=== PATIENT | male | born 1955 | race Caucasian/White ===

== ENCOUNTER 2018-11-01 17:03 | Inpatient (IN) ==
[2018-11-01 17:53] LABS: Basophils % 0.4 % (0.0-0.8); Eosinophils # 0.1 10*3/uL (0.0-0.87); Eosinophils % 1.1 % (0.00-10.9); Hematocrit 42.4 VOL% (42.0-52.0); Hemoglobin 13.2 GM/DL (14.0-18.0); Immature Granulocytes % 0.4 %; Immature Granulocytes Absolute 0.05 #; Lymphocytes # 1.4 10*3/uL (1.4-4.0); Lymphocytes % 12.2 % (21.2-54.2); Mean Corpuscular HGB Conc 31.1 GM/DL (32-36); Mean Corpuscular Volume 97.9 FL (87-102); Mean Platelet Volume 9.3 FL (9.6-12.0); Monocytes % 5.5 % (1.7-12.7); Neutrophils % 80.4 % (38.7-73.9); Platelet Count 243 T/CUMM (130-400); Red Blood Count 4.33 MC/CUMM (3.8-5.5); Red Cell Distribution Width 12.3 % (9.3-17.3); White Blood Count 11.3 T/CUMM (4-12)
[2018-11-01 18:03] LABS: INR 0.8; PT Patient Result 9.1 SECS; Partial Thromboplastin Time 26.9 SECS (0-40)
[2018-11-01 18:25] LABS: Albumin 3.7 G/DL (3.4-5.0); Bilirubin,Total 0.4 MG/DL (0.2-1.0); Calcium 9.7 MG/DL (8.5-10.1); Osmolality,Calculated 275.8 MOS/KG (273-304); Total Protein 7.8 G/DL (6.4-8.3)
[2018-11-01] MEDS ORDERED: cefTRIAXone 1,000 MG in SODIUM CHLORIDE 0.9% 100 ML IV STA (18:37)
[2018-11-01] MEDS ORDERED: methylPREDNISolone SOD SUC 125 MG/2 ML VIAL IV STA (18:37)
[2018-11-01] MEDS ORDERED: cefTRIAXone 1,000 MG in SYRINGE 1 EACH IV STA (18:44)
[2018-11-01] MEDS ORDERED: ALBUTEROL 2.5 MG/3 ML NEB RESP TX SCH (19:00)
[2018-11-01] MEDS ORDERED: ONDANSETRON 4 MG/2 ML VIAL IV PRN (20:18)
[2018-11-02] MEDS: oxyCODONE/ACETAMINOPHEN 5-325 MG TABLET PO SCH ×4 (00:14→09:15)
[2018-11-02] MEDS: BUDESONIDE/FORMOTEROL 160-4.5 INHALER 6 GM INH SCH ×2 (00:25→08:10)
[2018-11-02] MEDS: GABAPENTIN 300 MG CAPSULE PO SCH ×5 (00:29→20:54)
[2018-11-02] MEDS: SODIUM CHLOR 0.45% KCL 20 MEQ 20 MEQ/1,000 ML BAG IV SCH ×3 (00:29→21:10)
[2018-11-02] MEDS: MIRTAZAPINE 15 MG TABLET PO SCH ×2 (00:29→20:54)
[2018-11-02] MEDS: ALBUTEROL/IPRATROPIUM 3 ML NEB RESP TX SCH ×4 (00:36→19:31)
[2018-11-02] MEDS: AZITHROMYCIN INJ 500 MG in SODIUM CHLORIDE 0.9% 250 ML IV SCH ×2 (03:25→21:10)
[2018-11-02] MEDS: methylPREDNISolone SOD SUC 40 MG/1 ML VIAL IV SCH ×3 (03:26→17:43)
[2018-11-02 04:49] LABS: Basophils % 0.1 % (0.0-0.8); Hematocrit 40.1 VOL% (42.0-52.0); Hemoglobin 12.9 GM/DL (14.0-18.0); Immature Granulocytes % 0.3 %; Immature Granulocytes Absolute 0.03 #; Lymphocytes # 0.7 10*3/uL (1.4-4.0); Lymphocytes % 7.9 % (21.2-54.2); Mean Corpuscular HGB Conc 32.2 GM/DL (32-36); Mean Corpuscular Volume 96.6 FL (87-102); Mean Platelet Volume 9.7 FL (9.6-12.0); Monocytes % 1.3 % (1.7-12.7); Neutrophils % 90.4 % (38.7-73.9); Platelet Count 246 T/CUMM (130-400); Red Blood Count 4.15 MC/CUMM (3.8-5.5); Red Cell Distribution Width 12.3 % (9.3-17.3); White Blood Count 8.6 T/CUMM (4-12)
[2018-11-02 05:10] LABS: Calcium 10.1 MG/DL (8.5-10.1); Osmolality,Calculated 279.7 MOS/KG (273-304)
[2018-11-02] MEDS: ROFLUMILAST 500 MCG TABLET PO SCH (08:08)
[2018-11-02] MEDS: PANTOPRAZOLE 40 MG VIAL IV SCH (08:08)
[2018-11-02] MEDS: oxyCODONE/ACETAMINOPHEN 5-325 MG TABLET PO PRN ×2 (12:11→17:43)
[2018-11-02] MEDS: NYSTATIN 500,000 UNIT/5 ML UDCUP SWISH/SWAL SCH ×2 (17:42→20:59)
[2018-11-02] MEDS: ENOXAPARIN 40 MG/0.4 ML SYRINGE SUBCUT SCH (17:45)
[2018-11-02] MEDS: ARFORMOTEROL 15 MCG/2 ML NEB RESP TX SCH (19:31)
[2018-11-02] MEDS: DORNASE ALFA 2.5 MG/2.5 ML VIAL RESP TX SCH (19:31)
[2018-11-02] MEDS: cefTRIAXone 1,000 MG in SYRINGE 1 EACH IV SCH (20:55)
[2018-11-03] MEDS: ALBUTEROL/IPRATROPIUM 3 ML NEB RESP TX SCH ×4 (00:30→19:20)
[2018-11-03] MEDS: methylPREDNISolone SOD SUC 40 MG/1 ML VIAL IV SCH ×4 (01:31→17:36)
[2018-11-03] MEDS: SODIUM CHLOR 0.45% KCL 20 MEQ 20 MEQ/1,000 ML BAG IV SCH ×3 (06:09→17:49)
[2018-11-03] MEDS: oxyCODONE/ACETAMINOPHEN 5-325 MG TABLET PO PRN ×3 (06:09→21:00)
[2018-11-03] MEDS: ARFORMOTEROL 15 MCG/2 ML NEB RESP TX SCH ×2 (09:05→19:20)
[2018-11-03] MEDS: DORNASE ALFA 2.5 MG/2.5 ML VIAL RESP TX SCH ×2 (09:18→19:20)
[2018-11-03] MEDS: ROFLUMILAST 500 MCG TABLET PO SCH (09:24)
[2018-11-03] MEDS: GABAPENTIN 300 MG CAPSULE PO SCH ×4 (09:24→20:59)
[2018-11-03] MEDS: NYSTATIN 500,000 UNIT/5 ML UDCUP SWISH/SWAL SCH ×4 (09:25→21:00)
[2018-11-03] MEDS: PANTOPRAZOLE 40 MG VIAL IV SCH (09:25)
[2018-11-03] MEDS: ENOXAPARIN 40 MG/0.4 ML SYRINGE SUBCUT SCH (17:33)
[2018-11-03] MEDS: NICOTINE 21 MG/24 HR PATCH TRANSDERM SCH (18:43)
[2018-11-03] MEDS: cefTRIAXone 1,000 MG in SYRINGE 1 EACH IV SCH (20:56)
[2018-11-03] MEDS: MIRTAZAPINE 15 MG TABLET PO SCH (20:59)
[2018-11-03] MEDS: AZITHROMYCIN INJ 500 MG in SODIUM CHLORIDE 0.9% 250 ML IV SCH (21:16)
[2018-11-04] MEDS: ALBUTEROL/IPRATROPIUM 3 ML NEB RESP TX SCH ×3 (00:05→14:21)
[2018-11-04] MEDS: methylPREDNISolone SOD SUC 40 MG/1 ML VIAL IV SCH ×3 (02:30→09:43)
[2018-11-04] MEDS: SODIUM CHLOR 0.45% KCL 20 MEQ 20 MEQ/1,000 ML BAG IV SCH ×2 (03:47→13:56)
[2018-11-04] MEDS: oxyCODONE/ACETAMINOPHEN 5-325 MG TABLET PO PRN ×2 (06:03→13:57)
[2018-11-04] MEDS: ARFORMOTEROL 15 MCG/2 ML NEB RESP TX SCH (07:29)
[2018-11-04] MEDS: DORNASE ALFA 2.5 MG/2.5 ML VIAL RESP TX SCH (07:41)
[2018-11-04] MEDS: PANTOPRAZOLE 40 MG VIAL IV SCH (08:37)
[2018-11-04] MEDS: NICOTINE 21 MG/24 HR PATCH TRANSDERM SCH (08:37)
[2018-11-04] MEDS: NYSTATIN 500,000 UNIT/5 ML UDCUP SWISH/SWAL SCH ×3 (08:38→17:08)
[2018-11-04] MEDS: ROFLUMILAST 500 MCG TABLET PO SCH (08:38)
[2018-11-04] MEDS: GABAPENTIN 300 MG CAPSULE PO SCH ×3 (08:38→17:08)
[2018-11-04] MEDS ORDERED: MECLIZINE 25 MG TABLET PO PRN (12:44)
[2018-11-04] MEDS ORDERED: methylPREDNISolone SOD SUC 40 MG/1 ML VIAL IV SCH (13:00)
[2018-11-04 15:55] VITALS: BP 132/79
[2018-11-04] MEDS: ENOXAPARIN 40 MG/0.4 ML SYRINGE SUBCUT SCH (17:08)
[2018-11-05] MEDS ORDERED: predniSONE 20 MG TABLET PO SCH (09:00)
== END 2018-11-04 17:11 | disposition home or self-care (01) | DRG 190 ==
LOC: N.ED 17:03 → N.EDINP 20:18 → N.5E 21:20
PROVIDERS: ADMIT Internal Medicine; ATTEND Internal Medicine

== ENCOUNTER 2019-02-10 13:40 | Observation (INO) ==
[2019-02-10] MEDS ORDERED: ASPIRIN 325 MG TABLET PO STA (14:11)
[2019-02-10] MEDS ORDERED: ENOXAPARIN 100 MG/ML SYRINGE SUBCUT STA (14:11)
[2019-02-10] MEDS ORDERED: ALBUTEROL/IPRATROPIUM 3 ML NEB RESP TX STA (14:11)
[2019-02-10 14:18] LABS: Basophils % 0.1 % (0.0-0.8); Eosinophils % 0.3 % (0.00-10.9); Hematocrit 42.5 VOL% (42.0-52.0); Hemoglobin 13.5 GM/DL (14.0-18.0); Immature Granulocytes % 0.7 %; Immature Granulocytes Absolute 0.08 #; Lymphocytes # 0.9 10*3/uL (1.4-4.0); Lymphocytes % 7.5 % (21.2-54.2); Mean Corpuscular HGB Conc 31.8 GM/DL (32-36); Mean Platelet Volume 9.4 FL (9.6-12.0); Monocytes % 4.2 % (1.7-12.7); Neutrophils % 87.2 % (38.7-73.9); Platelet Count 172 T/CUMM (130-400); Red Blood Count 4.21 MC/CUMM (3.8-5.5); Red Cell Distribution Width 13.3 % (9.3-17.3); White Blood Count 11.5 T/CUMM (4-12)
[2019-02-10 14:40] LABS: Albumin 3.5 G/DL (3.4-5.0); Bilirubin,Total 0.4 MG/DL (0.2-1.0); Calcium 9.3 MG/DL (8.5-10.1); Osmolality,Calculated 279.7 MOS/KG (273-304); Total Protein 6.6 G/DL (6.4-8.3)
[2019-02-10] MEDS ORDERED: NICOTINE 21 MG/24 HR PATCH TRANSDERM PRN (15:39)
[2019-02-10] MEDS ORDERED: ACETAMINOPHEN 325 MG TABLET PO PRN (15:39)
[2019-02-10] MEDS ORDERED: ONDANSETRON 4 MG/2 ML VIAL IV PRN (15:39)
[2019-02-10] MEDS ORDERED: DOCUSATE SODIUM 100 MG CAPSULE PO PRN (15:39)
[2019-02-10] MEDS ORDERED: methylPREDNISolone SOD SUC 125 MG/2 ML VIAL IV ONE (15:44)
[2019-02-10] MEDS ORDERED: ALBUTEROL/IPRATROPIUM 3 ML NEB RESP TX PRN (15:45)
[2019-02-10 16:26] LABS: ABG Base Excess 8.7 MMOL/L (-2.5-2.5); ABG HCO3 32.4 MMOL/L (20-26); ABG Oxygen Saturation 97.6 % (95-100); ABG PCO2 53.8 MM HG (35-48); ABG PH 7.423 (7.35-7.45); ABG PO2 89.7 MM HG (80-95); ABG TCO2 30.5 MMOL/L (23-27); Allen Test Positive
[2019-02-10] MEDS ORDERED: LEVOFLOXACIN INJ 750 MG in PREMIX 1 EACH IV SCH (18:00)
[2019-02-10] MEDS: METHOCARBAMOL 500 MG TABLET PO SCH ×2 (18:22→21:21)
[2019-02-10] MEDS: TAMSULOSIN 0.4 MG CAPSULE PO SCH (18:22)
[2019-02-10] MEDS: GABAPENTIN 300 MG CAPSULE PO SCH ×2 (18:22→21:21)
[2019-02-10] MEDS: MIRTAZAPINE 15 MG TABLET PO SCH (21:21)
[2019-02-10] MEDS: BUDESONIDE/FORMOTEROL 160-4.5 INHALER 6 GM INH SCH (21:21)
[2019-02-11 07:22] LABS: Basophils % 0.2 % (0.0-0.8); Hematocrit 41.6 VOL% (42.0-52.0); Hemoglobin 12.9 GM/DL (14.0-18.0); Immature Granulocytes Absolute 0.06 #; Lymphocytes # 0.6 10*3/uL (1.4-4.0); Lymphocytes % 9.4 % (21.2-54.2); Mean Corpuscular Volume 101.2 FL (87-102); Mean Platelet Volume 9.4 FL (9.6-12.0); Monocytes % 2.9 % (1.7-12.7); Neutrophils % 86.5 % (38.7-73.9); Platelet Count 159 T/CUMM (130-400); Red Blood Count 4.11 MC/CUMM (3.8-5.5); Red Cell Distribution Width 13.1 % (9.3-17.3); White Blood Count 6.2 T/CUMM (4-12)
[2019-02-11 07:56] LABS: Calcium 9.7 MG/DL (8.5-10.1); Osmolality,Calculated 289.1 MOS/KG (273-304)
[2019-02-11] MEDS: GABAPENTIN 300 MG CAPSULE PO SCH ×4 (08:14→20:54)
[2019-02-11] MEDS: DULoxetine 30 MG CAPSULE PO SCH (08:14)
[2019-02-11] MEDS: PANTOPRAZOLE 40 MG TABLET PO SCH (08:14)
[2019-02-11] MEDS: METHOCARBAMOL 500 MG TABLET PO SCH ×4 (08:14→20:54)
[2019-02-11] MEDS: ROFLUMILAST 500 MCG TABLET PO SCH (08:14)
[2019-02-11] MEDS: FINASTERIDE 5 MG TABLET PO SCH (08:14)
[2019-02-11] MEDS: DIVALPROEX ER 500 MG TABLET PO SCH (08:14)
[2019-02-11] MEDS: BUDESONIDE/FORMOTEROL 160-4.5 INHALER 6 GM INH SCH ×2 (08:16→20:54)
[2019-02-11] MEDS: oxyCODONE/ACETAMINOPHEN 5-325 MG TABLET PO PRN ×2 (10:01→17:18)
[2019-02-11] MEDS: predniSONE 20 MG TABLET PO SCH (10:01)
[2019-02-11] MEDS ORDERED: ASPIRIN CHEW 81 MG TABLET PO ONE ×2 (11:37→11:38)
[2019-02-11] MEDS ORDERED: NITROGLYCERIN SL 0.4 MG TABLET SL PRN (11:37)
[2019-02-11] MEDS ORDERED: NITROGLYCERIN SL 0.4 MG TABLET SL ONE (11:38)
[2019-02-11] MEDS ORDERED: KETOROLAC 30 MG/1 ML VIAL IV ONE (11:45)
[2019-02-11] MEDS: ALBUTEROL/IPRATROPIUM 3 ML NEB RESP TX PRN (11:51)
[2019-02-11 11:52] LABS: Hematocrit 39.8 VOL% (42.0-52.0); Hemoglobin 12.7 GM/DL (14.0-18.0); Immature Granulocytes % 0.5 %; Immature Granulocytes Absolute 0.04 #; Lymphocytes # 0.7 10*3/uL (1.4-4.0); Lymphocytes % 8.3 % (21.2-54.2); Mean Corpuscular HGB Conc 31.9 GM/DL (32-36); Mean Platelet Volume 9.2 FL (9.6-12.0); Monocytes % 4.1 % (1.7-12.7); Neutrophils % 87.1 % (38.7-73.9); Platelet Count 161 T/CUMM (130-400); Red Blood Count 4.02 MC/CUMM (3.8-5.5); Red Cell Distribution Width 13.1 % (9.3-17.3); White Blood Count 7.9 T/CUMM (4-12)
[2019-02-11 12:23] LABS: Alanine Aminotransferase 20 U/L (16-61); Alkaline Phosphatase 58 U/L (45-117); Aspartate Amino Transferase 17 U/L (0-37); Bilirubin,Total < 0.39 MG/DL (0.2-1.0); Blood Urea Nitrogen 28 MG/DL (7-18); Calcium 9.1 MG/DL (8.5-10.1); Glucose 110 MG/DL (74-106); Osmolality,Calculated 285.4 MOS/KG (273-304); Total Protein 6.2 G/DL (6.4-8.3)
[2019-02-11] MEDS ORDERED: ENOXAPARIN 40 MG/0.4 ML SYRINGE SUBCUT SCH (14:00)
[2019-02-11] MEDS: TAMSULOSIN 0.4 MG CAPSULE PO SCH (17:18)
[2019-02-11] MEDS: MIRTAZAPINE 15 MG TABLET PO SCH (20:54)
[2019-02-11] MEDS ORDERED: BUDESONIDE/FORMOTEROL 160-4.5 INHALER 6 GM INH SCH (21:00)
[2019-02-12] MEDS: oxyCODONE/ACETAMINOPHEN 5-325 MG TABLET PO PRN ×2 (00:09→06:32)
[2019-02-12] MEDS: ALBUTEROL/IPRATROPIUM 3 ML NEB RESP TX PRN (05:05)
[2019-02-12 05:35] LABS: Basophils % 0.1 % (0.0-0.8); Eosinophils % 0.4 % (0.00-10.9); Hematocrit 38.5 VOL% (42.0-52.0); Hemoglobin 12.5 GM/DL (14.0-18.0); Immature Granulocytes % 0.7 %; Immature Granulocytes Absolute 0.05 #; Lymphocytes # 1.6 10*3/uL (1.4-4.0); Lymphocytes % 21.6 % (21.2-54.2); Mean Corpuscular HGB Conc 32.5 GM/DL (32-36); Mean Corpuscular Volume 97.7 FL (87-102); Mean Platelet Volume 9.6 FL (9.6-12.0); Monocytes % 4.5 % (1.7-12.7); Neutrophils % 72.7 % (38.7-73.9); Platelet Count 149 T/CUMM (130-400); Red Blood Count 3.94 MC/CUMM (3.8-5.5); Red Cell Distribution Width 13.1 % (9.3-17.3); White Blood Count 7.6 T/CUMM (4-12)
[2019-02-12 06:10] LABS: Calcium 9.3 MG/DL (8.5-10.1); Osmolality,Calculated 287.3 MOS/KG (273-304)
[2019-02-12 07:29] VITALS: BP 111/67
[2019-02-12] MEDS: ROFLUMILAST 500 MCG TABLET PO SCH (08:20)
[2019-02-12] MEDS: FINASTERIDE 5 MG TABLET PO SCH (08:20)
[2019-02-12] MEDS: DULoxetine 30 MG CAPSULE PO SCH (08:20)
[2019-02-12] MEDS: GABAPENTIN 300 MG CAPSULE PO SCH (08:20)
[2019-02-12] MEDS: predniSONE 20 MG TABLET PO SCH (08:21)
[2019-02-12] MEDS: DIVALPROEX ER 500 MG TABLET PO SCH (08:21)
[2019-02-12] MEDS: PANTOPRAZOLE 40 MG TABLET PO SCH (08:21)
[2019-02-12] MEDS: METHOCARBAMOL 500 MG TABLET PO SCH (08:21)
[2019-02-12] MEDS: BUDESONIDE/FORMOTEROL 160-4.5 INHALER 6 GM INH SCH (08:23)
== END 2019-02-12 13:03 | disposition home or self-care (01) ==
LOC: N.ED 13:40 → N.EDINP 13:40 → SUATTDRO 15:39 → N.5E 17:37
PROVIDERS: ADMIT Internal Medicine; ATTEND Internal Medicine